=== PATIENT | female | born 2000 | race Two or more races ===

== ENCOUNTER 2024-06-24 05:15 | Emergency (ER) | payer MEDICARE, OTHER ==
[~2024-06-24] VITALS: Ht 170.2 cm; Wt 107.2 kg
[2024-06-24] MEDS ORDERED: CEPH500T PO (06:23)
--- NOTE | 2024-06-24 06:33 | ED.PDOC ---
History of Present Illness HPI Comments 24 y/o F presents with c/o right breast pain and rash, today. SHE HAS HAD THE SAME ISSUE OFF AND ON SINCE 15 YR OLD AND HAD HAD A NORMAL US. 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 History Family History Family History: Reviewed,noncontributory to illness, No family hx of Cancer, No family hx of DM, No family hx of Heart clarence, No family hx of HTN, No family hx ofKidney clarence, No family hx of Liver clarence, No family hx of Lung clarence, No family hx of Stroke Social History Smoker: Non-Smoker Alcohol: Denies ETOH Use Drugs: Denies Drug Use Lives In: Home Musculoskeletal: reports: others (rigth breast pain) Integumetry: reports: rash (rigth breast ) All Other Systems: Reviewed and Negative (negative unless otherwise stated above or in HPI) Physical Exam General Appearance: No Apparent Distress, Obese HEENT: Normal ENT Inspection, Pharynx Normal, TMs Normal Neck: Full Range of Motion, Non-Tender, Normal, Normal Inspection Respiratory: Chest Non-Tender, Lungs Clear, No Accessory Muscle Use, No Respiratory Distress, Normal Breath Sounds Cardiovascular: No Edema, No JVD, No Murmur, No Gallop, Normal Peripheral Pulses, Regular Rate/Rhythm Breast Exam: Deferred Gastrointestinal: No Organomegaly, Non Tender, No Pulsatile Mass, Normal Bowel Sounds, Soft Genitalia: Deferred Pelvic: Deferred Rectal: Deferred Extremities: No calf tenderness, Normal capillary refill, Normal inspection, Normal range of motion, Non-tender, No pedal edema Musculoskeletal : Apperance: Normal 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 Was a procedure done?: No Differential Dx Considerations may include: cellulitis MASTITIS, ABSCESS, PAGET'S DISEASE X-Ray, Labs, Meds, VS Vital Signs Date Time Temp Pulse Resp B/P (MAP) Pulse Ox O2 Delivery O2 Flow Rate FiO2 06/24/24 05:37 98.1 99 18 157/92 (113) 98 Time of 1ST Reevaluation: 06:30 Reevaluation 1ST: Unchanged Patient Education/Counseling: Diagnosis, Treatment, Prognosis, Need For Follow Up Family Education/Counseling: No Family Present Departure 1 Departure Time of Disposition: 07:04 Impression: Primary Impression: Mastitis Disposition: 01 HOME / SELF CARE / HOMELESS Condition: Good e-Prescriptions Cephalexin Monohydrate (Cephalexin) 500 Mg Tab 1 TAB PO QID for 7 Days, #28 TAB Prov: ISMAEL LITTLE MD 06/24/24 Discharged With: Self Critical Care Note Critical Care Time?: No Stability Stability form required: No Heart Score Heart Score: Heart Score Response (Comments) Value History N/A 0 EKG N/A 0 Age N/A 0 Risk Factors N/A 0 Troponin N/A 0 Total 0 I personally scribed for ISMAEL LITTLE MD ([email or web address]) on 06/24/24 at 06:33. Electronically submitted by Guy Aaron [email or web address]). ISMAEL LITTLE MD Jun 24, 2024 06:33
[2024-06-24 07:26] VITALS: BP 143/78; PULSE 102; RESP 18; TEMP 98.9; O2SAT 99
== END 2024-06-24 07:29 | disposition home or self-care (01) ==
LOC: ER 05:15
DX: N61.0 Mastitis without abscess (principal); Z79.899 Other long term (current) drug therapy